=== PATIENT | female | born 1995 | race Caucasian/White ===

== ENCOUNTER 2016-10-16 11:29 | Emergency (ER) | payer MEDICAID, OTHER ==
[~2016-10-16] VITALS: Ht 149.9 cm; Wt 75.0 kg
[2016-10-16 11:31] VITALS: BP 112/57; PULSE 39; RESP 16; TEMP 98.5; O2SAT 98
[2016-10-16] MEDS ORDERED: MONT10TA2 PO (11:50)
[2016-10-16] MEDS ORDERED: OMEP20TA PO (11:50)
[2016-10-16] MEDS ORDERED: ALBU0.08 NEB (11:50)
[2016-10-16 12:00] VITALS: BP 103/60; PULSE 53; RESP 18; O2SAT 99
[2016-10-16] MEDS ORDERED: SODIUM CHLORIDE 0.9% FLUSH 10 ML FLUSH IVF PRN (12:00)
--- NOTE | 2016-10-16 12:12 | PD ---
HPI Chief Complaint: Cardiac Complaint Time Seen by Provider: 11:56 Travel History International Travel<30 days: No Contact w/Intl Traveler<30days: No Traveled to known affect area: No History of Present Illness HPI Patient is a 21-year-old female with history of Down syndrome open heart surgery to correct a mitral valve issue at and implanted pacemaker several months of age presents emergency department for evaluation of bradycardia. Mom is concerned because she sounds congested. States symptoms been going on for the past month. They've been evaluated at [facility] as well as [facility]. Her home care provider [facility] tells her that eventually she will need a pacemaker placement. Mom states that she is just been not quite acting herself recently. She still been eating and drinking and breathing normally. No fevers. History is somewhat limited by the patient's mental handicap as well as the fact the mother speaks Azeri only. There are accompanied by caregiver who gives most of the history. 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 LUNG) Social History Alcohol Use: No (PT'S MOTHER DENIES) Tobacco Use: No (PT'S MOTHER DENIES) Substance Use: No Allergies-Medications (Allergen,Severity, Reaction): Coded Allergies: No Known Allergies (Unverified , 10/16/16) Reported Meds & Prescriptions Reported Meds & Active Scripts Active Reported Albuterol Neb (Albuterol Sulfate) 2.5 Mg/3 Ml Neb 2.5 Mg NEB Q4HR NEB While awake Omeprazole 20 Mg Tab 20 Mg PO DAILY Singulair (Montelukast Sodium) 10 Mg Tab 10 Mg PO HS Review of Systems Except as stated in HPI: all other systems reviewed are Neg Physical Exam Narrative GENERAL: Well-developed well-nourished, facial features of Down syndrome. She appears well and appears to have adequate perfusion throughout all of her skin. Happy smiling and appropriate interaction for someone of downs. SKIN: Focused skin assessment warm/dry. HEAD: Atraumatic. Normocephalic. EYES: Pupils equal and round. No scleral icterus. No injection or drainage. ENT: No nasal bleeding or discharge. Mucous membranes pink and moist. NECK: Trachea midline. No JVD. CARDIOVASCULAR: Regular rhythm with bradycardia. No murmur appreciated. 2+ bilateral equal pulses in all 4 extremity's. RESPIRATORY: No accessory muscle use. Clear to auscultation. Breath sounds equal bilaterally. GASTROINTESTINAL: Abdomen soft, non-tender, nondistended. Hepatic and splenic margins not palpable. MUSCULOSKELETAL: No obvious deformities. No clubbing. No cyanosis. No edema. NEUROLOGICAL: Awake and alert. No obvious cranial nerve deficits. Motor grossly within normal limits. Normal speech. PSYCHIATRIC: Appropriate mood and affect; insight and judgment normal. Data Data Last Documented VS Vital Signs Date Time Temp Pulse Resp B/P Pulse Ox O2 Delivery O2 Flow Rate FiO2 10/16/16 15:30 46 18 107/51 97 Room Air 10/16/16 11:31 98.5 Orders Electrocardiogram (10/16/16 ) Complete Blood Count With Diff (10/16/16 11:56) Comprehensive Metabolic Panel (10/16/16 11:56) Magnesium (Mg) (10/16/16 11:56) Prothrombin Time / Inr (Pt) (10/16/16 11:56) Act Partial Throm Time (Ptt) (10/16/16 11:56) Troponin I (10/16/16 11:56) Chest, Single Ap (10/16/16 11:56) Ecg Monitoring (10/16/16 11:56) Iv Access Insert/Monitor (10/16/16 11:56) Oximetry (10/16/16 11:56) Oxygen Administration (10/16/16 11:56) Sodium Chloride 0.9% Flush (Ns Flush) (10/16/16 12:00) Labs Laboratory Tests Test 10/16/16 12:05 White Blood Count 8.8 TH/MM3 Red Blood Count 4.24 MIL/MM3 Hemoglobin 13.6 GM/DL Hematocrit 40.0 % Mean Corpuscular Volume 94.3 FL Mean Corpuscular Hemoglobin 32.1 PG Mean Corpuscular Hemoglobin 34.1 % Concent Red Cell Distribution Width 14.3 % Platelet Count 228 TH/MM3 Mean Platelet Volume 8.6 FL Neutrophils (%) (Auto) 65.8 % Lymphocytes (%) (Auto) 27.2 % Monocytes (%) (Auto) 4.5 % Eosinophils (%) (Auto) 1.6 % Basophils (%) (Auto) 0.9 % Neutrophils # (Auto) 5.8 TH/MM3 Lymphocytes # (Auto) 2.4 TH/MM3 Monocytes # (Auto) 0.4 TH/MM3 Eosinophils # (Auto) 0.1 TH/MM3 Basophils # (Auto) 0.1 TH/MM3 CBC Comment DIFF FINAL Differential Comment Prothrombin Time 10.9 SEC Prothromb Time International 1.0 RATIO Ratio Activated Partial 26.7 SEC Thromboplast Time Sodium Level 137 MEQ/L Potassium Level 4.0 MEQ/L Chloride Level 103 MEQ/L Carbon Dioxide Level 28.5 MEQ/L Anion Gap 6 MEQ/L Blood Urea Nitrogen 14 MG/DL Creatinine 0.76 MG/DL Estimat Glomerular Filtration 94 ML/MIN Rate Random Glucose 88 MG/DL Calcium Level 8.9 MG/DL Magnesium Level 2.4 MG/DL Total Bilirubin 0.3 MG/DL Aspartate Amino Transf 12 U/L (AST/SGOT) Alanine Aminotransferase 42 U/L (ALT/SGPT) Alkaline Phosphatase 86 U/L Troponin I LESS THAN 0.02 NG/ML Total Protein 7.3 GM/DL Albumin 3.4 GM/DL [facility] Medical Decision Making Medical Screen Exam Complete: Yes Emergency Medical Condition: Yes Differential Diagnosis Bradycardia, ACS unlikely, SC likely, CHF unlikely, decreased cardiac output unlikely. Narrative Course Patient roomed emergency department, CBC and CMP are within normal limits. Chest x-ray clear. Last 24 hours Impressions Chest X-Ray 10/16/16 1156 Signed Impressions: Service Date/Time: September 12:06 - CONCLUSION: 1. Enlarged cardiac silhouette raising the possibility of cardiomegaly and/or pericardial effusion. 2. No focal pulmonary infiltrate or pulmonary vascular congestion. Ortega Siddiqi MD The patient certainly does have bradycardia and care of her mother states that the patient's pacemaker is been in place ever since . At this time she seems to be tolerating her bradycardia just fine and I do not see an indication for further workup at this time. I have attempted to get outside records multiple times from both [place] and [facility] without success. At this time mother would like to bring the child home. I do not see indication to admit her at this time. Discussed return to ED criteria need follow-up with her home care provider first thing in the morning. Diagnosis Primary Impression: Bradycardia Disposition: 01 DISCHARGE HOME Condition: Stable Ortega Powell MD Oct 16, 2016 12:12
[2016-10-16 12:31] LABS: AUTOMATED NEUTROPHIL # 5.8 TH/MM3 (1.8-7.7); BASOPHIL # 0.1 TH/MM3 (0-0.2); BASOPHIL % 0.9 % (0.0-2.0); EOSINOPHIL # 0.1 TH/MM3 (0-0.4); EOSINOPHIL % 1.6 % (0.0-4.0); HEMO FLAGS DIFF FINAL; LYMPH % 27.2 % (9.0-44.0); LYMPHOCYTE # 2.4 TH/MM3 (1.0-4.8); MEAN CELL VOLUME 94.3 FL (80.0-100.0); MEAN CORPUSCULAR HEMOGLOBIN 32.1 PG (27.0-34.0); MEAN CORPUSCULAR HGB CONC 34.1 % (32.0-36.0); MONO % 4.5 % (0.0-8.0); NEUT % 65.8 % (16.0-70.0); PLATELET COUNT 228 TH/MM3 (150-450); RED BLOOD COUNT 4.24 MIL/MM3 (4.00-5.30); RED CELL DISTRIBUTION WIDTH 14.3 % (11.6-17.2); WHITE BLOOD COUNT 8.8 TH/MM3 (4.0-11.0)
[2016-10-16 12:41] LABS: APTT (PATIENT) 26.7 SEC (24.3-30.1); PROTHROMBIN TIME - PATIENT 10.9 SEC (9.8-11.6)
[2016-10-16 13:00] VITALS: BP 128/57; PULSE 46; RESP 18; O2SAT 99
[2016-10-16 13:01] LABS: ANION GAP 6 MEQ/L (5-15); AST (GOT) 12 U/L (15-37); BICARBONATE 28.5 MEQ/L (21.0-32.0); BLOOD UREA NITROGEN 14 MG/DL (7-18); CHLORIDE 103 MEQ/L (98-107); GLOMERULAR FILTRATION RATE 94 ML/MIN (>89); MAGNESIUM 2.4 MG/DL (1.5-2.5); SODIUM (NA) 137 MEQ/L (136-145)
[2016-10-16 13:02] LABS: ALT (GPT) 42 U/L (10-53)
--- NOTE | 2016-10-16 13:02 | RADRPT ---
EXAM DATE/TIME: 10/16/2016 12:06 [facility] COMPARISON: No previous studies available for comparison. INDICATIONS : Chest pain. MEDICAL HISTORY : Mitral valve defect, Down Syndrome SURGICAL HISTORY : Lobectomy. Coronary artery bypass graft, pacemaker at 7 months old ENCOUNTER: Initial ACUITY: 1 day PAIN SCORE: 6/10 LOCATION: Bilateral chest FINDINGS: Median sternotomy wires are noted status-post cardiac surgery. The cardiac silhouette is enlarged. The pulmonary vascular pattern is normal. The lungs are clear. A pacemaker device has its leads ove rlying the right heart. CONCLUSION: 1. Enlarged cardiac silhouette raising the possibility of cardiomegaly and/or pericardial effusion. 2. No focal pulmonary infiltrate or pulmonary vascular congestion. Ortega Siddiqi MD on October 16, 2016 at 12:55 Board Certified Radiologist. This report was verified electronically.
[2016-10-16 13:06] LABS: ALKALINE PHOSPHATASE 86 U/L (45-117); TOTAL BILIRUBIN ADULT 0.3 MG/DL (0.2-1.0)
[2016-10-16 14:30] VITALS: BP 103/53; PULSE 45; RESP 18; O2SAT 98
[2016-10-16 15:30] VITALS: BP 107/51; PULSE 46; RESP 18; O2SAT 97
--- NOTE | 2016-10-17 14:38 | EKG ---
Date Performed: 10/16/2016 Time Performed: 12:00:57 PTAGE: 21 years EKG: SINUS BRADYCARDIA WITH SINUS ARRHYTHMIA RIGHT BUNDLE BRANCH BLOCK PROBABLE INFERIOR MYOCARD IAL INFARCTION MODERATE T-WAVE ABNORMALITY, CONSIDER LATERAL ISCHEMIA ABNORMAL ECG NO PREVIOUS TRACING DOCTOR: Devon Raymond Interpretating Date/Time 10/17/2016 14:34:54
== END 2016-10-16 15:48 | disposition home or self-care (01) ==
LOC: NEPC 11:29
DX: R00.1 Bradycardia, unspecified (principal); Q90.9 Down syndrome, unspecified; J45.909 Unspecified asthma, uncomplicated; K21.9 Gastro-esophageal reflux disease without esophagitis; Z79.51 Long term (current) use of inhaled steroids; Z79.899 Other long term (current) drug therapy
CPT/HCPCS: 71010; 80053; 83735; 84484; 85025; 85610; 85730; 93005; 99285